=== PATIENT | female | born 1955 | race Caucasian/White ===

== ENCOUNTER → 2016-11-15 | Outpatient (CLI) | payer MEDICAID ==
[2016-11-15 11:14] LABS: CH 32.8; CHCM 34.5; HCT 36.9 % (34.0-46.0); HDW 2.61; HGB 12.4 gm/dL (11.4-16.0); MCHC 33.5 g/dL (31.0-37.0); MCV 95.5 fL (80.0-100.0); RBC 3.86 m/uL (3.80-5.40); RDW 12.3 % (11.5-15.5); WBC 6.7 k/uL (3.8-10.6)
[2016-11-15 11:23] LABS: ALT 47 U/L (9-52); AST 28 U/L (14-36); Alkaline Phosphatase 82 U/L (38-126); Anion Gap 11 mmol/L; Blood Urea Nitrogen 17 mg/dL (7-17); Calcium 9.2 mg/dL (8.4-10.2); Carbon Dioxide 25 mmol/L (22-30); Chloride 110 mmol/L (98-107); Cholesterol 183 mg/dL (<200); Glucose 104 mg/dL (74-99); HDL Cholesterol 42 mg/dL (40-60); Non-African American GFR(MDRD) >60 (>60 ml/min/1.73 sqM); Potassium 4.1 mmol/L (3.5-5.1); Sodium 146 mmol/L (137-145); Total Bilirubin 0.3 mg/dL (0.2-1.3); Total Protein 6.9 g/dL (6.3-8.2); Triglycerides 138 mg/dL (<150)
[2016-11-15 13:24] LABS: Hemoglobin A1C 5.7 % (4.2-6.1)
== END | disposition home or self-care (01) ==
LOC: LABWHC1 10:46
PROVIDERS: ATTEND Family Medicine
DX: M19.90 Unspecified osteoarthritis, unspecified site (principal); R53.83 Other fatigue
CPT/HCPCS: 36415; 80053; 80061; 83036; 84443; 85027

== ENCOUNTER → 2016-11-26 | Outpatient (CLI) | payer MEDICAID ==
--- NOTE | 2016-11-26 09:01 | US ---
EXAMINATION TYPE: US carotid duplex BILAT DATE OF EXAM: 11/26/2016 7:52 AM COMPARISON: NONE CLINICAL HISTORY: Q25.3 Aortic stenosis. pt states that doctor can hear a bruit at the lower rt cca a luis EXAM MEASUREMENTS: RIGHT: Peak Systolic Velocity (PSV) cm/sec ----- Right CCA: 117.3 ----- Right ICA: 43.0 ----- Right ECA: 94.0 ICA/CCA ratio: 0.9 RIGHT: End Diastole cm/sec ----- Right CCA: 43.0 ----- Right ICA: 37.0 ----- Right ECA: 24.1 LEFT: Peak Systolic Velocity (PSV) cm/sec ----- Left CCA: 101.7 ----- Left ICA: 114.0 ----- Left ECA: 71.0 ICA/CCA ratio: 1.1 LEFT: End Diastole cm/sec ----- Left CCA: 38.3 ----- Left ICA: 43.0 ----- Left ECA: 22.6 VERTEBRALS (direction of flow): Right Vertebral: Antegrade Left Vertebral: Antegrade IMPRESSION: bilateral intimal thickening; some distal bilateral ICA vessel tortuosity; no elevated velocity in either ICA, no significant stenosis Criteria for Assigning % of Stenosis / Diameter reduction (Estimation based on the indirect measurements of the internal carotid artery velocities (ICA PSV). 1. Normal (no stenosis)=ICA PSV < 125 cm/s: ratio < 2.0: ICA EDV<40 cm/s. 2. Less than 50% stenosis=ICA PSV < 125 cm/s: ratio < 2.0: ICA EDV<40 cm/s. 3. 50 to 69% stenosis=ICA PSV of 125 to 230 cm/s: ration 2.0 ? 4.0: ICA EDV 40-100 cm/s. 4. Greater than 70% stenosis to near occlusion= ICA PSV > 230 cm/s: ratio > 4.0: ICA EDV > 100 cm/s. 5. Near occlusion= ICA PSV velocities may be low or undetectable: variable ratio and ICA EDV. 6. Total occlusion=unable to detect flow.
== END | disposition home or self-care (01) ==
LOC: RADUSWWP 07:30
PROVIDERS: ATTEND Family Medicine
DX: I77.1 Stricture of artery (principal)
CPT/HCPCS: 93880

== ENCOUNTER → 2016-12-06 | Outpatient (CLI) | payer MEDICAID ==
--- NOTE | 2016-12-06 14:20 | BD ---
EXAMINATION TYPE: MG DEXA axial skeleton. DATE OF EXAM: 12/06/2016 12:56 PM CLINICAL HISTORY: Height: 67.5 inches Weight: 174 pounds FRAX RISK QUESTIONS: Alcohol (3 or more units per day): no Family History (Parent hip fracture): no Glucocorticoids (More than 3mos): no, but uses Flonase occasionally (Ex: prednisone, prednisolone, methylprednisolone, dexamethasone, and hydrocortisone). History of Fracture as adult: no Secondary Osteoporosis: 1. Type 1 Diabetes: no 2. Hyperthyroidism: no 3. Menopause before 45: no 4. Malnutrition: no 5. Chronic liver disease: no Rheumatoid Arthritis: no Current Tobacco Use: patient states no RISK FACTORS HISTORY OF: Family History of Osteoporosis: no Drink Alcohol: very very seldom Active: yes Diet low in dairy products/other sources of calcium:perhaps one serving a day Postmenopausal woman: yes Take estrogen and/or progesterone medications: no Lost more than 2 inches in height since high school: states that height was 69 inches at one time Frequent falls: no Poor Health: no Hyperparathyroidism: no Adrenal Insufficiency: no MEDICATIONS: Prednisone or other steroids: no Thyroid Medications: no Osteoporosis Medications: no Additional Medications: calcium with Vitamin D EXAM MEASUREMENTS: Bone mineral densitometry was performed using the [employer] System. Bone mineral density as measured about the Lumbar spine is: ----- L1-L4(G/cm2): 1.084 T Score Values are as follows: ----- L2: -1.4 ----- L3: -0.7 ----- L4: 0.4 ----- L1-L4: -0.8 Bone mineral density has: Decreased -1.0% since study of: 05/29/2014 Bone mineral density about the R hip (g/cm2): 0.719 Bone mineral density about the L hip (g/cm2): 0.749 T Score values are as follows: -----R Neck: -2.3 -----L Neck: -2.1 -----R Intertrochanter: -1.9 -----L Intertrochanter: -1.1 Bone mineral density has: Decreased -5.9% since study of: 05/29/2014 IMPRESSION: Normal (Values between +1 and -1 indicate normal bone mass) L3 & L4 Osteopenia (T Score between -2.5 and -1 as noted by T score values L2 & Bilateral Hips There is slightly increased risk of fracture and the patient may be considered for treatment. Re-Screen 1-2 years. NOTE: T-SCORE=SD OF THE YOUNG ADULT MEAN.
== END ==
LOC: RADBDWWP 12:21
PROVIDERS: ATTEND Obstetrics & Gynecology
DX: M85.80 Other specified disorders of bone density and structure, unspecified site (principal)
CPT/HCPCS: 77080

== ENCOUNTER → 2016-12-06 | Outpatient (CLI) | payer MEDICAID ==
--- NOTE | 2016-12-08 08:14 | MM ---
Reason for exam: screening (asymptomatic). Last mammogram was performed 1 year ago. History: Patient is postmenopausal. Physical Findings: A clinical breast exam by your physician is recommended on an annual basis and results should be correlated with mammographic findings. MG Screening Mammo w CAD Bilateral CC and MLO view(s) were taken. Prior study comparison: November 26, 2015, bilateral MG screening mammo w CAD. May 29, 2014, bilateral MG screening mammo w CAD. The breast tissue is heterogeneously dense. This may lower the sensitivity of mammography. No significant changes when compared with prior studies. ASSESSMENT: Benign, BI-RAD 2 RECOMMENDATION: Routine screening mammogram of both breasts in 1 year.
== END | disposition home or self-care (01) ==
LOC: RADMAMWWP 12:20
PROVIDERS: ATTEND Family Medicine
DX: Z12.31 Encounter for screening mammogram for malignant neoplasm of breast (principal)

== ENCOUNTER → 2016-12-13 | Outpatient (CLI) | payer MEDICAID | END | disposition home or self-care (01) | LOC: LABWHC1 09:44 | PROVIDERS: ATTEND Family Medicine | DX: M25.40 Effusion, unspecified joint (principal) | CPT/HCPCS: 36415; 85652; 86200; 86431 ==

== ENCOUNTER → 2017-08-17 | Outpatient (CLI) | payer MEDICAID ==
[2017-08-17 15:09] LABS: CH 31.4; CHCM 32.4; HCT 39.2 % (34.0-46.0); HDW 2.17; MCH 32.2 pg (25.0-35.0); MCHC 33.1 g/dL (31.0-37.0); MCV 97.3 fL (80.0-100.0); RBC 4.02 m/uL (3.80-5.40); RDW 13.2 % (11.5-15.5); WBC 8.5 k/uL (3.8-10.6)
[2017-08-17 15:23] LABS: Partial Thromboplastin Time 22.5 sec (22.0-30.0)
[2017-08-17 15:34] LABS: ALT 44 U/L (9-52); AST 25 U/L (14-36); Alkaline Phosphatase 72 U/L (38-126); Anion Gap 8 mmol/L; Blood Urea Nitrogen 14 mg/dL (7-17); Carbon Dioxide 21 mmol/L (22-30); Chloride 110 mmol/L (98-107); Glucose 82 mg/dL (74-99); Non-African American GFR(MDRD) >60 (>60 ml/min/1.73 sqM); Potassium 4.4 mmol/L (3.5-5.1); Sodium 139 mmol/L (137-145); Total Bilirubin 0.3 mg/dL (0.2-1.3); Total Protein 6.8 g/dL (6.3-8.2)
== END | disposition home or self-care (01) ==
LOC: LABPAT 14:24
PROVIDERS: ATTEND Orthopaedic Surgery
DX: Z01.812 Encounter for preprocedural laboratory examination (principal)
CPT/HCPCS: 80053; 85027; 85610; 85730; 87070

== ENCOUNTER → 2018-01-13 | Outpatient (CLI) | payer MEDICAID ==
--- NOTE | 2018-01-16 13:47 | MM ---
Reason for exam: screening (asymptomatic). Last mammogram was performed 1 year and 1 month ago. History: Patient is postmenopausal. Physical Findings: A clinical breast exam by your physician is recommended on an annual basis and results should be correlated with mammographic findings. MG 3D Screening Mammo W/Cad Bilateral CC and MLO view(s) were taken. Prior study comparison: December 06, 2016, bilateral MG screening mammo w CAD. November 26, 2015, bilateral MG screening mammo w CAD. The breast tissue is heterogeneously dense. This may lower the sensitivity of mammography. There are typically benign round, vascular calcifications in both breasts. There is no discrete abnormality. ASSESSMENT: Benign, BI-RAD 2 RECOMMENDATION: Routine screening mammogram of both breasts in 1 year.
== END ==
LOC: RADMAMWWP 09:33
PROVIDERS: ATTEND Family Medicine
DX: Z12.31 Encounter for screening mammogram for malignant neoplasm of breast (principal)
CPT/HCPCS: 77063; 77067

== ENCOUNTER 2018-04-28 08:13 | Day surgery (SDC) | payer MEDICAID ==
[2018-04-27 08:23] VITALS: BMI 26.6
[~2018-04-28 08:13] MED LIST: LACTATED RINGERS 1,000 ML IV SCH; LIDOCAINE 1% 20 ML VIAL (10MG/ML) FOR IV START INTRADERMA PRN; MIDAZOLAM 2 MG/2 ML VIAL IV PRN
[2018-04-28 08:41] VITALS: RESP 16; TEMP 98
[2018-04-28] MEDS ORDERED: KETOROLAC 30 MG/ML 1 ML VIAL IVP ONE (08:48)
[2018-04-28] MEDS ORDERED: PROPOFOL 10 MG/ML 20 ML VIAL IV ONE (09:15)
[2018-04-28] MEDS ORDERED: LIDOCAINE 1% INJ 10MG/ML (20 ML MDV) ONE (09:15)
--- NOTE | 2018-04-28 09:38 | P.PCN ---
Date of Procedure: 04/28/18 Procedure(s) Performed: BRIEF HISTORY: Patient is a 63-year-old pleasant at female, scheduled for an elective colonoscopy as a part of a evaluation of prior history of colon polyps. Last colonoscopy was 4 years ago. PROCEDURE PERFORMED: Colonoscopy with snare polypectomy. PREOPERATIVE DIAGNOSIS: History of colon polyps. IV sedation per Anesthesia. PROCEDURE: After informed consent was obtained, the patient, was brought into the endoscopy unit. IV sedation was administered by Anesthesia under continuous monitoring. Digital rectal examination was normal. Initially the Olympus CF- 160 flexible video colonoscope was then inserted in the rectum, gradually advanced into the cecum without any difficulty. Careful examination was performed as the scope was gradually being withdrawn. Ileocecal valve and the appendiceal orifice were visualized and appeared normal. Prep was excellent. Mucosa of the cecum, ascending colon, appeared normal. In the transverse colon there was a 1 segment of broad-based polyp that was removed by snare polypectomy. Rest of the transverse colon, descending colon, sigmoid colon, and rectum appeared normal. Scattered sigmoidal reticulosis seen. Retroflexion was performed in the rectum and small internal hemorrhoids were seen. The patient tolerated the procedure well. IMPRESSION: 1 cm broad-based transverse colon polyp status post polypectomy Scattered sigmoid diverticulosis Small internal hemorrhoids. RECOMMENDATIONS: Findings of this examination were discussed with the patient as well as a family. She was advised to follow with the biopsy results. If the biopsy shows a tubular adenoma, she can have a repeat colonoscopy in 3-5 years.
[2018-04-28 10:08] VITALS: BP 143/86; PULSE 64
== END 2018-04-28 10:11 | disposition home or self-care (01) ==
LOC: ORWHC2ENDO 08:13
PROVIDERS: ATTEND Internal Medicine Gastroenterology
DX: Z12.11 Encounter for screening for malignant neoplasm of colon (principal); D12.3 Benign neoplasm of transverse colon; K57.30 Diverticulosis of large intestine without perforation or abscess without bleeding; Z86.010 Personal history of colon polyps; K21.9 Gastro-esophageal reflux disease without esophagitis; I10 Essential (primary) hypertension; E78.5 Hyperlipidemia, unspecified; F17.210 Nicotine dependence, cigarettes, uncomplicated; Z79.899 Other long term (current) drug therapy; Z79.82 Long term (current) use of aspirin; M54.9 Dorsalgia, unspecified
CPT/HCPCS: 88305; 45385; J2001; J1885; J2704

== ENCOUNTER → 2018-11-20 | Outpatient (CLI) | payer MEDICAID ==
[2018-11-20 08:28] LABS: HCT 43.3 % (34.0-46.0); HGB 14.2 gm/dL (11.4-16.0); MCH 30.7 pg (25.0-35.0); MCHC 32.8 g/dL (31.0-37.0); MCV 93.7 fL (80.0-100.0); Mean Platelet Volume 9.1; Platelet Count 275 k/uL (150-450); RBC 4.62 m/uL (3.80-5.40); RDW 13.3 % (11.5-15.5); WBC 9.4 k/uL (3.8-10.6)
[2018-11-20 11:41] LABS: LDL Cholesterol,Calculated 125.4 mg/dL (0.0-131.0); VLDL Calculation 27.6 mg/dL (5.00-40.00)
[2018-11-20 11:42] LABS: Albumin 4.5 g/dL (3.80-4.90); Albumin/Globulin Ratio 1.96 (1.60-3.17); Anion Gap 7.4 mmol/L (4.00-12.00); Calcium 9.3 mg/dL (8.7-10.3); Carbon Dioxide 27.6 mmol/L (21.6-31.8); Globulin 2.3 g/dL (1.6-3.3); Potassium 4.1 mmol/L (3.5-5.5); Total Bilirubin 0.4 mg/dL (0.3-1.2); Total Protein 6.8 g/dL (6.2-8.2)
[2018-11-20 11:54] LABS: Vitamin D 25 Hydroxy 29.1 ng/mL (30.0-100.0)
[2018-11-20 12:02] LABS: C-Peptide 1.75 ng/mL (0.81-3.85)
[2018-11-20 13:31] LABS: Hemoglobin A1C 5.6 % (4.0-6.0)
== END ==
LOC: LABWHC1 07:16
PROVIDERS: ATTEND Family Medicine
DX: R53.83 Other fatigue (principal)
CPT/HCPCS: 36415; 80053; 80061; 82306; 83036; 84443; 84681; 85027

== ENCOUNTER → 2019-02-16 | Outpatient (CLI) | payer MEDICAID ==
--- NOTE | 2019-02-20 14:07 | MM ---
Reason for exam: screening (asymptomatic). Last mammogram was performed 1 year and 1 month ago. History: Patient is postmenopausal. Taking estrogen for 2 years beginning at age 63. Taking progesterone for 2 years beginning at age 63. Physical Findings: A clinical breast exam by your physician is recommended on an annual basis and results should be correlated with mammographic findings. MG 3D Screening Mammo W/Cad Bilateral CC and MLO view(s) were taken. Prior study comparison: January 13, 2018, bilateral MG 3d screening mammo w/cad. December 06, 2016, bilateral MG screening mammo w CAD. The breast tissue is heterogeneously dense. This may lower the sensitivity of mammography. Benign appearing bilateral calcifications. No significant changes when compared with prior studies. ASSESSMENT: Benign, BI-RAD 2 RECOMMENDATION: Routine screening mammogram of both breasts in 1 year.
== END ==
LOC: RADMAMWWP 10:40
PROVIDERS: ATTEND Obstetrics & Gynecology
DX: Z12.31 Encounter for screening mammogram for malignant neoplasm of breast (principal)
CPT/HCPCS: 77063; 77067

== ENCOUNTER → 2020-03-25 | Outpatient (CLI) | payer MEDICAID ==
--- NOTE | 2020-03-27 08:46 | MM ---
Reason for exam: screening (asymptomatic). Last mammogram was performed 1 year and 1 month ago. History: Patient is postmenopausal. Taking estrogen for 2 years beginning at age 63. Taking progesterone for 2 years beginning at age 63. Physical Findings: A clinical breast exam by your physician is recommended on an annual basis and results should be correlated with mammographic findings. MG 3D Screening Mammo W/Cad Bilateral CC and MLO view(s) were taken. Prior study comparison: February 16, 2019, bilateral MG 3d screening mammo w/cad. January 13, 2018, bilateral MG 3d screening mammo w/cad. The breast tissue is heterogeneously dense. This may lower the sensitivity of mammography. Stable asymmetric densities. No significant changes when compared with prior studies. ASSESSMENT: Benign, BI-RAD 2 RECOMMENDATION: Routine screening mammogram of both breasts in 1 year.
== END | disposition home or self-care (01) ==
LOC: RADMAMWWP 11:09
PROVIDERS: ATTEND Obstetrics & Gynecology
DX: Z12.31 Encounter for screening mammogram for malignant neoplasm of breast (principal)
CPT/HCPCS: 77063; 77067

== ENCOUNTER → 2020-07-30 | Outpatient (CLI) | payer MEDICAID ==
--- NOTE | 2020-07-31 13:47 | BD ---
EXAMINATION TYPE: Axial Bone Density DATE OF EXAM: 07/30/2020 COMPARISON: Prior DEXA bone scan December 06, 2016 CLINICAL HISTORY: Postmenopausal female. Disorder of bone. Height: 68 Weight: 180.2 FRAX RISK QUESTIONS: Alcohol (3 or more units per day): no Family History (Parent hip fracture): no Glucocorticoids (More than 3mos): no (Ex: prednisone, prednisolone, methylprednisolone, dexamethasone, and hydrocortisone). History of Fracture in Adulthood: no Secondary Osteoporosis: 1. Type 1 Diabetes: no 2. Hyperthyroidism: no 3. Menopause before 45: no 4. Malnutrition: no 5. Chronic liver disease: no Rheumatoid Arthritis: no Current Tobacco Use: no RISK FACTORS HISTORY OF: Family History of Osteoporosis: no Active: yes Diet low in dairy products/other sources of calcium: yes Postmenopausal woman: 14 years ago Take estrogen and/or progesterone medications: Prempro How lon years Lost more than 2 inches in height since high school: no MEDICATIONS: amlodipine, gabapentin, montelukast, benadryl Thyroid Medications: synthroid How Lon months Additional History: EXAM MEASUREMENTS: Bone mineral densitometry was performed using the [employer] System. Bone mineral density as measured about the Lumbar spine is: ----- L1-L4(G/cm2): 1.167 T Score Values are as follows: ----- L2: -0.7 ----- L3: 0.1 ----- L4: 1.2 ----- L1-L4: -0.1 Bone mineral density has: increased 8.1 % since study of: 12.06.2016 Bone mineral density about the R hip (g/cm2): 0.737 Bone mineral density about the L hip (g/cm2): 0.751 T Score values are as follows: -----R Neck: -2.2 -----L Neck: -2.1 -----R Total: -1.8 -----L Total: -1.4 Bone mineral density has: increased 0.6 % since study of: 12.06.2016 IMPRESSION: Osteopenia (T Score between -2.5 and -1) remains present. There remains slightly increased risk of fracture and the patient may be considered for treatment. Re-Screen 2-5 years. NOTE: T-SCORE=SD OF THE YOUNG ADULT MEAN.
== END | disposition home or self-care (01) ==
LOC: RADBDWWP 15:42
PROVIDERS: ATTEND Obstetrics & Gynecology
DX: M85.80 Other specified disorders of bone density and structure, unspecified site (principal)
CPT/HCPCS: 77080

== ENCOUNTER → 2022-09-15 | Outpatient (CLI) | payer MEDICAID ==
--- NOTE | 2022-09-16 08:47 | MM ---
Reason for Exam: Screening (asymptomatic). Last mammogram was performed 2 year(s) and 6 month(s) ago. Patient History: Menarche at age 11. First Full-Term at age 16. Postmenopausal. Estrogen for 2 years from age 63 until age 66. Progesterone for 2 years from age 63 until age 66. Risk Values: Deysi 5 year model risk: 1.2%. NCI Lifetime model risk: 4.0%. Prior Study Comparison: 01/13/2018 Bilateral Screening Mammogram, [facility]. 02/16/2019 Bilateral Screening Mammogram, [facility]. 03/25/2020 Bilateral Screening Mammogram, [facility]. Tissue Density: The breast tissue is heterogeneously dense. This may lower the sensitivity of mammography. Findings: Analyzed By CAD. There is no suspicious group of microcalcifications or new suspicious mass in either breast. Overall Assessment: Negative, BI-RAD 1 Management: Screening Mammogram of both breasts in 1 year. A clinical breast exam by your physician is recommended on an annual basis and results should be correlated with mammographic findings. [facility] will attempt to contact patient to return for supplemental views and ultrasound if indicated. Electronically signed and approved by: Jose Sun DO
== END | disposition home or self-care (01) ==
LOC: RADMAMWWP 14:26
PROVIDERS: ATTEND Obstetrics & Gynecology
DX: Z12.31 Encounter for screening mammogram for malignant neoplasm of breast (principal); Z78.0 Asymptomatic menopausal state
CPT/HCPCS: 77063; 77067

== ENCOUNTER 2023-01-19 07:32 | Day surgery (SDC) | payer MEDICARE, OTHER ==
[~2023-01-19 07:32] MED LIST changes: +LIDOCAINE 1% (10MG/ML) FOR IV START INTRADERMA PRN; -LIDOCAINE 1% 20 ML VIAL (10MG/ML) FOR IV START INTRADERMA PRN; -MIDAZOLAM 2 MG/2 ML VIAL IV PRN
[2023-01-19 07:48] VITALS: RESP 16; TEMP 97.4
[2023-01-19] MEDS ORDERED: LIDOCAINE 2% INJ 20 MG/ML (2 ML VIAL) ONE (08:25)
[2023-01-19] MEDS ORDERED: PROPOFOL 10 MG/ML 20 ML VIAL IV ONE (08:25)
--- NOTE | 2023-01-19 08:54 | P.PCN ---
Date of Procedure: 01/19/23 Procedure(s) Performed: Brief history: Patient is a pleasant 67-year-old white female scheduled for an elective upper endoscopy as well as colonoscopy as a part of evaluation of GERD and prior history of colon polyps Procedure performed: Esophagogastroduodenoscopy with biopsy Colonoscopy Preoperative diagnosis: GERD History of colon polyps Anesthesia: MAC Procedure: After informed consent was obtained from the patient was brought into the endoscopy unit and IV sedation was administered by anesthesia under continuous monitoring. Initially upper endoscopy was done. The Olympus GF 160 video endoscope was inserted inserted into the mouth and esophagus intubated without any difficulty and was gradually advanced into the stomach and duodenum and carefully examined. The bulb and second part of the duodenum appeared normal. The scope was then withdrawn into the stomach adequately insufflated with air and upon careful examination the antrum had mild gastritis and biopsies were done from this area. Mucosa of the body, cardia and fundus appeared normal. The scope was then withdrawn into the esophagus. The GE junction was located at 40 cm to the incisors. It appeared regular with no erythema erosions or ulcerations. Rest of the esophagus appeared normal. Patient tolerated the procedure well. At this time the patient continued to remain sedation. Initial digital rectal examination was normal. Olympus CF 160 video colonoscope was then inserted into the rectum and gradually advanced to the cecum without any difficulty. Careful examination was performed as the scope was gradually being withdrawn. The prep was excellent. The cecum, ascending colon, transverse colon, descending colon, sigmoid colon and rectum appeared normal. Retroflexion was performed in the rectum and no lesions were noted. Patient tolerated the procedure well. Impression: 1. Upper endoscopy revealed mild antral gastritis but no evidence of esophagitis or Brenner's esophagus 2. Colonoscopy revealed scattered similar diverticulosis but no evidence of colorectal neoplasia Recommendations: Findings of this examination were discussed with the patient as well as her family. She was advised to continue with omeprazole 20 mg daily and follow antireflux measures. Recommend repeat colonoscopy in 10 years.
[2023-01-19 09:34] VITALS: BP 126/62; PULSE 68
== END 2023-01-19 09:53 | disposition home or self-care (01) ==
LOC: ORWHC2ENDO 07:32
PROVIDERS: ATTEND Internal Medicine Gastroenterology
DX: Z12.11 Encounter for screening for malignant neoplasm of colon (principal); K29.50 Unspecified chronic gastritis without bleeding; K21.9 Gastro-esophageal reflux disease without esophagitis; K57.30 Diverticulosis of large intestine without perforation or abscess without bleeding; Z86.010 Personal history of colon polyps; I10 Essential (primary) hypertension; E78.5 Hyperlipidemia, unspecified; J44.9 Chronic obstructive pulmonary disease, unspecified; Z87.891 Personal history of nicotine dependence; E03.9 Hypothyroidism, unspecified; Z79.51 Long term (current) use of inhaled steroids; Z79.890 Hormone replacement therapy; Z79.899 Other long term (current) drug therapy
CPT/HCPCS: 88305; 43239; J2704; J2001; G0121

== ENCOUNTER → 2024-07-06 | Outpatient (CLI) | payer MEDICARE ==
--- NOTE | 2024-07-06 13:22 | CA ---
Transthoracic Echo Report Name: Ai Almazan Age: 69 Gender: F : 1955 Exam Date: 07/06/2024 08:39 Exam Location: [facility] Ht (in): 69 Wt (lb): 160 Ordering Physician: Timothy Dubose MD Attending/Referring Phys: Canvas Baster Jumpbasting Mamie Perkins RDCS Procedure CPT: Indications: R079 - Chest pain, unspecified Cardiac Hx: Technical Quality: Good Contrast 1: Total Dose (mL): Contrast 2: Total Dose (mL): MEASUREMENTS (Male / Female) Normal Values 2D ECHO LV Diastolic Diameter PLAX 4.5 cm 4.2 - 5.9 / 3.9 - 5.3 cm LV Systolic Diameter PLAX 3.0 cm IVS Diastolic Thickness 1.2 cm 0.6 - 1.0 / 0.6 - 0.9 cm LVPW Diastolic Thickness 1.1 cm 0.6 - 1.0 / 0.6 - 0.9 cm LV Relative Wall Thickness 0.5 RV Internal Dim ED PLAX 3.2 cm LA Systolic Diameter LX 3.1 cm 3.0 - 4.0 / 2.7 - 3.8 cm LV Diastolic Volume MOD 4C 104.0 cm??? LV Systolic Volume MOD 4C 46.1 cm??? LV Ejection Fraction MOD 4C 55.7 % LV Cardiac Index MOD 4C 1934.7 cm???/min???m??? LV Diastolic Length 4C 7.3 cm LV Systolic Length 4C 5.9 cm LV Diastolic Volume MOD 2C 63.7 cm??? LV Systolic Volume MOD 2C 30.3 cm??? LV Ejection Fraction MOD 2C 52.3 % LV Cardiac Index MOD 2C 1114.6 cm???/min???m??? LV Diastolic Length 2C 7.3 cm LV Systolic Length 2C 5.9 cm LA Volume 61.1 cm??? 18 - 58 / 22 - 52 cm??? LA Volume Index 32.4 cm???/m??? 16 - 28 cm???/m??? M-MODE Aortic Root Diameter MM 2.9 cm AV Cusp Separation MM 1.9 cm DOPPLER AV Peak Velocity 128.4 cm/s AV Peak Gradient 6.6 mmHg MV Area PHT 2.6 cm??? Mitral E Point Velocity 69.6 cm/s Mitral A Point Velocity 97.7 cm/s Mitral E to A Ratio 0.7 MV Deceleration Time 295.7 ms TR Peak Velocity 221.4 cm/s TR Peak Gradient 19.6 mmHg Right Ventricular Systolic Press 23.9 mmHg FINDINGS Left Ventricle Left ventricular ejection fraction is estimated at 55-60 %. Left ventricular cavity size normal.Mildly increased septal wall thickness. Mildly increased posterior wall thickness. Right Ventricle Normal right ventricular size and function. Right ventricular systolic pressure within normal limits. Right Atrium Mild right atrial dilatation. No right atrial thrombus or mass seen. Left Atrium Mildly increased left atrial volume. No left atrial thrombus or mass present. Mitral Valve Structurally normal mitral valve. No evidence for mitral valve prolapse. No mitral stenosis. Mild mitral regurgitation. Aortic Valve Trileaflet aortic valve. No aortic valve stenosis or regurgitation. Tricuspid Valve Structurally normal tricuspid valve. Mild tricuspid regurgitation. Pulmonic Valve Structurally normal pulmonic valve. Mild pulmonic regurgitation. Pericardium No pericardial or pleural effusion. Aorta Normal size aortic root and proximal ascending aorta. CONCLUSIONS LVEF 55 to 60% Mild concentric LVH No obvious regional wall motion abnormality Normal RV size and systolic function No significant valvular dysfunction Previewed by: Dr Danie Hilliard (Electronically Signed) Final Date: 06 July 2024 13:21
== END | disposition home or self-care (01) ==
LOC: RADECHMAIN 08:19
PROVIDERS: ATTEND Family Medicine
DX: R07.9 Chest pain, unspecified
CPT/HCPCS: 93306

== ENCOUNTER → 2025-03-15 | Outpatient (CLI) | payer MEDICARE ==
--- NOTE | 2025-03-15 12:54 | XR ---
EXAMINATION TYPE: XR Hip Complete LT DATE OF EXAM: 03/15/2025 12:39 PM COMPARISON: 03/15/2025 CLINICAL INDICATION: Female, 70 years old with history of M25.552; PHH, pain TECHNIQUE: XR Hip Complete LT; Frontal and lateral views FINDINGS: No evidence for acute process, joint dislocation or significant soft tissue swelling. Osteo phyte formation of the superior acetabulum of the hip. There is mild joint space narrowing. IMPRESSION: 1. No evidence for acute process. 2. Mild hip osteoarthrosis. [facility], , 03/15/2025 12:52 PM
--- NOTE | 2025-03-15 12:56 | XR ---
EXAMINATION TYPE: XR lumbar spine 2 or 3V DATE OF EXAM: 03/15/2025 12:39 PM COMPARISON: None CLINICAL INDICATION: Female, 70 years old with history of M51.361; PHH, pain TECHNIQUE: XR lumbar spine 2 or 3V - Frontal, lateral and coned in L5-S1 lateral views of the spine. FINDINGS: No evidence of any acute osseous pathology. No evidence of loss of vertebral body height i s seen. There is normal alignment of the lumbar vertebral bodies. Scattered disc space narrowing. Mul tilevel marginal osteophyte formation throughout the visualized spine. There is facet joint arthropat hy throughout the spine. Scattered at least mild neural foraminal stenosis at L5-S1 IMPRESSION: 1. No acute fracture. 2. Moderate multilevel disc degeneration. [facility], , 03/15/2025 12:53 PM
== END | disposition home or self-care (01) ==
LOC: RADXRMAIN 12:08
PROVIDERS: ATTEND Family Medicine
DX: M51.361 Other intervertebral disc degeneration, lumbar region with lower extremity pain only (principal); M16.12 Unilateral primary osteoarthritis, left hip
CPT/HCPCS: 72100; 73502

== ENCOUNTER → 2025-03-18 | Outpatient (CLI) | payer MEDICARE ==
--- NOTE | 2025-03-18 18:08 | CT ---
EXAMINATION TYPE: CT hip LT wo con DATE OF EXAM: 03/18/2025 5:03 PM COMPARISON: Same day (radiograph. CLINICAL INDICATION: Female, 70 years old with history of M25.552 PAIN IN LEFT HIP; PHH, Stat H/C: Pa in/burning in left hip, numbness/tingling shooting down leg TECHNIQUE: Axial images were obtained of the CT hip LT wo con, Additional coronal and sagittal reform atted images and soft tissue and bone window were obtained for review. 3-D reconstruction was created on a separate workstation. CT DLP: 553.4 mGycm, Automated exposure control for dose reduction was used. FINDINGS: No acute fracture or dislocation of the left facet. Osseous structures are demineralized. V isualized pelvic bones appear intact. Mild to moderate left degenerative osteophytic changes. No evid ence of a soft tissue mass. Partially visualized abdomen and pelvis demonstrates colonic diverticulos is. IMPRESSION: 1. No acute fracture dislocation involving the left hip. 2. Mild to moderate left hip degenerative osteoarthritis. [facility], , 03/18/2025 6:06 PM
== END | disposition home or self-care (01) ==
LOC: RADCTMAIN 16:00
PROVIDERS: ATTEND Family Medicine
DX: M16.12 Unilateral primary osteoarthritis, left hip (principal)

== ENCOUNTER 2025-04-02 16:28 | Observation (INO) | payer MEDICARE ==
--- NOTE | 2025-04-02 17:10 | ED ---
Back Pain HPI - General Source: patient, RN notes reviewed Mode of arrival: wheelchair Limitations: no limitations <Macho Bernard - Last Filed: 04/02/25 17:28> - General Source: patient, RN notes reviewed <Hellen Douglas - Last Filed: 04/02/25 21:35> - General Chief Complaint: Back Pain/Injury Stated Complaint: Back pain, weakness Time Seen by Provider: 04/02/25 16:43 - History of Present Illness Initial Comments: Quick note: This is a 70-year-old female with history including COPD and joint replacement presenting for lower back pain (01/10) x 3 weeks. Patient states she is having numbness in her left leg extending to her mid calf, making it difficult to stand/walk for extended periods of time. Patient states she is fallen twice since the start of symptoms and several near falls. Patient states she was seen by Dr. Dubose who would like her admitted to have an epidural performed, stating he would like to be notified of patient's arrival for admission. Patient endorses use of Flexeril, Philo and morphine ER with some pa in relief. Endorses receiving both a lumbar x-ray and hip CT last month around mid March while the symptoms were occurring. Denies saddle paresthesia, urinary incontinence/retention, upper extremity paresthesia/weakness. (Macho Bernard) 70-year-old female sent by PCP for low back pain x 3 weeks. States that she has been experiencing pain in the lower back that radiates down her left leg with associated left leg numbness extending to her mid calf. States she is having difficulty ambulating due to symptoms. States symptoms began the day after she was gardening, however denies any specific trauma or injury. She was seen by Dr. Nixon who sent her to the ER for admission to have an epidural performed. She did receive a lumbar x-ray and hip CT last month around symptom onset. Denies saddle anesthesia, loss of bowel or bladder control, or weakness of the lower extremities. She has been taking morphine, Flexeril, and Philo with little relief. (Hellen Douglas) - Related Data Home Medications Medication Instructions Recorded Confirmed Pregabalin [Lyrica] 150 mg PO BID 08/05/14 01/19/23 Montelukast [Singulair] 10 mg PO HS 08/29/17 01/19/23 Ascorbic Acid [Vitamin C] 1,000 mg PO DAILY 01/14/23 01/19/23 Calcium Carbonate/Vitamin D3 1 each PO BID 01/14/23 01/19/23 [Calcium 600 mg-D3 10 Mcg (400 Iu)] Fexofenadine HCl [Andreea Allergy] 180 mg PO DAILY 01/14/23 01/19/23 Krill/Om-3/Dha/Epa/Phospho/Ast 1 each PO DAILY 01/14/23 01/19/23 [Krill Oil 500 mg Softgel] Levothyroxine Sodium [Synthroid] 88 mcg PO DAILY 01/14/23 01/19/23 Omeprazole [PriLOSEC] 40 mg PO HS 01/14/23 01/19/23 Oxybutynin ER [Ditropan Xl] 10 mg PO HS 01/14/23 01/19/23 Rosuvastatin Calcium 5 mg PO HS 01/14/23 01/19/23 Turmeric Root Extract [Turmeric] 500 mg PO DAILY 01/14/23 01/19/23 Umeclidinium Brm/Vilanterol Tr 1 puff INHALATION DAILY 01/14/23 01/19/23 [Anoro Ellipta 62.5-25 Mcg INH] Vitamin B Complex 1 each PO DAILY 01/14/23 01/19/23 amLODIPine [Norvasc] 5 mg PO BID 01/14/23 01/19/23 Allergies Allergy/AdvReac Type Severity Reaction Status Date / Time No Known Allergies Allergy Verified 04/02/25 16:36 Review of Systems ROS Other: All systems not noted in ROS Statement are negative. <Macho Bernard - Last Filed: 04/02/25 17:28> ROS Other: All systems not noted in ROS Statement are negative. <Hellen Douglas - Last Filed: 04/02/25 21:35> ROS Statement: Those systems with pertinent positive or pertinent negative responses have been documented in the HPI. Past Medical History Past Medical History: COPD, GERD/Reflux, Hyperlipidemia, Hypertension, Thyroid Disorder Additional Past Medical History / Comment(s): Chronic back pain, hx. colon polyps, hemorrhoids,. seasonal allergies History of Any Multi-Drug Resistant Organisms: MRSA Date of last positivie culture/infection: 07/17/15 MDRO Source:: Left Foot Past Surgical History: Joint Replacement, Orthopedic Surgery, Tubal Ligation Additional Past Surgical History / Comment(s): multiple Right knee arthroscopies. Colonoscopies, RT TKA Past Anesthesia/Blood Transfusion Reactions: No Reported Reaction Past Psychological History: No Psychological Hx Reported Smoking Status: Former smoker, Vaper Past Alcohol Use History: Rare Past Drug Use History: None Reported - Past Family History Mother Family Medical History: Cancer, Hyperlipidemia, Hypertension Additional Family Medical History / Comment(s): at 95, colon cancer Father Additional Family Medical History / Comment(s): of emphysema, at 86 <Macho Bernard - Last Filed: 04/02/25 17:28> General Exam Limitations: no limitations <Macho Bernard - Last Filed: 04/02/25 17:28> General appearance: alert, in no apparent distress Head exam: Present: atraumatic, normocephalic, normal inspection Eye exam: Present: normal appearance, PERRL, EOMI. Absent: scleral icterus, conjunctival injection, periorbital swelling GI/Abdominal exam: Present: soft, normal bowel sounds. Absent: distended, tenderness, guarding, rebound, rigid Back exam: Present: normal inspection, full ROM, other (Full strength and range of motion of bilateral hips, no saddle anesthesia, full sensation and DP pulses bilaterally). Absent: tenderness, CVA tenderness (R), CVA tenderness (L) Neurological exam: Present: alert, oriented X3 Psychiatric exam: Present: normal affect, normal mood Skin exam: Present: warm, dry, intact, normal color. Absent: rash <Hellen Douglas - Last Filed: 04/02/25 21:35> - General Exam Comments Initial Comments: Visual Physical Exam Vital signs reviewed General: Well-appearing, nontoxic, no acute distress. Head: Normocephalic, atraumatic Eyes: PERRLA, EOMI ENT: Airway patent Chest: Nonlabored breathing Skin: No visual rash, normal skin tone Neuro: Alert and oriented 3 Musculoskeletal: No gross abnormalities (Macho Bernard) Course Vital Signs 04/02/25 16:33 Temperature 98.2 F Pulse Rate 89 Respiratory 18 Rate Blood Pressure 138/75 O2 Sat by Pulse 96 Oximetry Medical Decision Making <Macho Bernard - Last Filed: 04/02/25 17:28> <Hellen Douglas - Last Filed: 04/02/25 21:35> - Medical Decision Making I completed the quick note portion of this chart signed ERIBERTO Bond (Macho Bernard) Was pt. sent in by a medical professional or institution ([facility], [employer], urgent care, hospital, or alf...) When possible be specific @ -Sent by Dr. Dubose for admission to have epidural performed Did you speak to anyone other than the patient for history (EMS, parent, family, police, friend...)? What history was obtained from this source @ -No Did you review nursing and triage notes (agree or disagree)? Why? @ -I reviewed and agree with nursing and triage notes Were old charts reviewed (outside hosp., previous admission, EMS record, old EKG, old radiological studies, urgent care reports/EKG's, alf records)? Report findings @ -No old charts were reviewed Differential Diagnosis (chest pain, altered mental status, abdominal pain women, abdominal pain men, vaginal bleeding, weakness, fever, dyspnea, syncope, headache, dizziness, GI bleed, back pain, seizure, CVA, palpatations, mental health, musculoskeletal)? @ -Differential Back Pain: Strain, zoster, cauda equina syndrome, epidural abscess, vertebral osteomyelitis, discitis, fracture, subluxation, disc herniation, DJD, spinal stenosis, dissection, AAA, pancreatitis, peptic ulcer disease, pyelonephritis, kidney stone, this is not meant to be an all-inclusive list. EKG interpreted by me (3pts min.). @ -None X-rays interpreted by me (1pt min.). @ -None done CT interpreted by me (1pt min.). @ -None done U/S interpreted by me (1pt. min.). @ -None done What testing was considered but not performed or refused? (CT, X-rays, U/S, labs)? Why? @ -Imaging in ER deferred given patient had recent lumbar x-ray and CT hip What meds were considered but not given or refused? Why? @ -None Did you discuss the management of the patient with other professionals (professionals i.e. [facility], [employer], lab, RT, psych nurse, social studies teacher, slipper maker, teacher, canine enforcement officer, returned case inspector)? Give summary @ -I spoke with Dr. Dubose who will admit patient and is requesting MRI lumbar spine and anesthesia consultation for planned epidural Was smoking cessation discussed for >3mins.? @ -No Was critical care preformed (if so, how long)? @ -No Were there social determinants of health that impacted care today? How? (Homelessness, low income, unemployed, alcoholism, drug addiction, transportation, low edu. Level, literacy, decrease access to med. care, senior care, rehab)? @ -No Was there de-escalation of care discussed even if they declined (Discuss DNR or withdrawal of care, Hospice)? DNR status @ -No What co-morbidities impacted this encounter? (DM, HTN, Smoking, COPD, CAD, Cancer, CVA, ARF, Chemo, Hep., AIDS, mental health diagnosis, sleep apnea, morbid obesity)? @ -None Was patient admitted / discharged? Hospital course, mention meds given and route, prescriptions, significant lab abnormalities, going to OR and other pertinent info. @ -Admitted. 70-year-old female sent by Dr. Dubose for intractable lower back pain. No red flag symptoms. Neurovascularly intact. Provided with appropriate analgesics and admitted to medicine for epidural. Case was discussed with my ED attending Dr. Robison. Undiagnosed new problem with uncertain prognosis? @ -No Drug Therapy requiring intensive monitoring for toxicity (Heparin, Nitro, Insul in, Cardizem)? @ -No Were any procedures done? @ -No Diagnosis/symptom? @ -Intractable back pain Acute, or Chronic, or Acute on Chronic? @ -Acute Uncomplicated (without systemic symptoms) or Complicated (systemic symptoms)? @ -Uncomplicated Side effects of treatment? @ -No Exacerbation, Progression, or Severe Exacerbation? @ -No Poses a threat to life or bodily function? How? (Chest pain, [place], NH, pneumonia, PE, COPD, DKA, ARF, appy, cholecystitis, CVA, Diverticulitis, Homicidal, Suicidal, threat to staff... and all critical care pts) @ -No (Hellen Douglas) Disposition <Macho Bernard - Last Filed: 04/02/25 17:28> Time of Disposition: 21:35 <Hellen Douglas - Last Filed: 04/02/25 21:35> Clinical Impression: Intractable back pain Disposition: ADMITTED IP TO THIS HOSP Referrals: Timothy Dubose MD [Primary Care Provider] - 1-2 days
[2025-04-02] MEDS ORDERED: ONDANSETRON 4 MG/2 ML VIAL IVP PRN (21:27)
[2025-04-02] MEDS ORDERED: NALOXONE 0.4 MG/ML 1 ML VIAL IV PRN (21:27)
[2025-04-02] MEDS ORDERED: ACETAMINOPHEN TAB 325 MG TAB PO PRN (21:27)
[2025-04-02 22:19] LABS: Bilirubin,Urine Negative (Negative); Blood,Urine Negative (Negative); Color,Urine Colorless; Glucose,Urine (UA) Negative (Negative); Ketones,Urine Negative (Negative); Leukocyte Esterase,Urine Negative (Negative); Nitrite,Urine Negative (Negative); PH, Urine 6.5 (5.0-8.0); Protein,Urine Negative (Negative); Specific Gravity,Urine 1.004 (1.001-1.035); Urobilinogen,Urine <2.0 mg/dL (<2.0)
[2025-04-02] MEDS: HYDROcodone/APAP 5-325MG 1 EACH TAB PO PRN (22:21)
[2025-04-02 22:31] LABS: Basophils # (A) 0.05 10*3/uL (0.00-0.10); Basophils % (A) 0.6 %; Eosinophils # (A) 0.38 10*3/uL (0.04-0.35); Eosinophils % (A) 4.7 %; HCT 41.7 % (37.2-46.3); HGB 14.7 g/dL (12.0-15.0); Lymphocytes # (A) 3.14 10*3/uL (0.90-5.00); Lymphocytes % (A) 38.7 %; MCH 33.3 pg (27.0-32.0); MCHC 35.3 g/dL (32.0-37.0); MCV 94.3 fL (80.0-97.0); Monocytes # (A) 0.81 10*3/uL (0.20-1.00); Monocytes % (A) 10.0 %; Neutrophils # (A) 3.70 10*3/uL (1.80-7.70); Neutrophils % (A) 45.5 %; Platelet Count 227 10*3/uL (140-440); RBC 4.42 10*6/uL (4.10-5.20); RDW 12.3 % (11.5-14.5); WBC 8.12 10*3/uL (4.50-10.00)
[2025-04-02 22:45] LABS: ALT 106 U/L (4-34); AST 108 U/L (14-36); African American GFR (CKD) >90 (>60 ml/min/1.73 sqM); Albumin 4.4 g/dL (3.5-5.0); Alkaline Phosphatase 107 U/L (38-126); Anion Gap 8 mmol/L; Blood Urea Nitrogen 14 mg/dL (7-17); Calcium 9.6 mg/dL (8.4-10.2); Carbon Dioxide 37 mmol/L (22-30); Chloride 93 mmol/L (98-107); Glucose 93 mg/dL (74-99); Non-African American GFR(CKD) >90 (>60 ml/min/1.73 sqM); Potassium 3.0 mmol/L (3.5-5.1); Sodium 138 mmol/L (137-145); Total Protein 7.2 g/dL (6.3-8.2)
[2025-04-03] MEDS: MORPHINE SULFATE 4 MG/ML SYRINGE IV PRN (05:32)
[2025-04-03] MEDS: IPRATROPIUM-ALBUTEROL 3 ML NEB INHALATION SCH (13:26)
--- NOTE | 2025-04-03 15:26 | CT ---
EXAMINATION TYPE: CT lumbar spine wo con DATE OF EXAM: 04/03/2025 3:08 PM COMPARISON: None CLINICAL INDICATION: Female, 70 years old with history of severe LBP s/p multiple falls; PHH, Severe lower back pain, multiple falls TECHNIQUE: Unenhanced CT of the lumbar spine was performed. Bone and soft tissue window settings are submitted as well as coronal and sagittal reconstructions. CT DLP: 863.[address] CTDI: mGy Automated exposure control for dose reduction was used. FINDINGS: The lumbar vertebral segments are normal in height and there is no fracture. There is a grade 1 anterolisthesis of L4 on L5. There is moderate facet arthropathy at the L4-5 and L5-S1 levels. There is mild degenerative disease throughout the lumbar region where there is mild disc space narrow ing and spondylosis. This vacuum phenomenon at the L5-S1 level. There is a large far left lateral broad-based disc protrusion/herniation of the L4-5 disc, severely compromising the left L4-5 neural foramina. Secondary to circumferential disc bulge and marked thick ening of ligamentum flavum, there is severe spinal stenosis at the L4-5 level. IMPRESSION: 1. Mild multilevel degenerative disease as described above. 2. Large left lateral disc herniation at the L4-5 level severely compromising the left L4-5 neural fo ramina. 3. Grade 1 anterolisthesis of L4 on L5. 4. Severe spinal stenosis at the L4-5 level. 5. Moderate facet arthropathy at the L4-5 and L5-S1 level. [facility], , 04/03/2025 3:24 PM
--- NOTE | 2025-04-03 15:33 | CT ---
EXAMINATION TYPE: CT chest wo con DATE OF EXAM: 04/03/2025 COMPARISON: None CLINICAL INDICATION: Female, 70 years old with history of high co2/copd; PHH, High co2/copd TECHNIQUE: CT scan of the thorax is performed without IV contrast. CT DLP: 491.[address] CTDI: mGy Automated exposure control for dose reduction was used. FINDINGS: There are no significant emphysematous changes. There are a few micronodules in the right lung and there is a 5 mm right lower lobe infrahilar nodule . In the right lateral lower lobe there is a focal area of pleural thickening with interstitial densi ties extending towards the hilum. It most likely represents a small focal round atelectasis. There is no airspace consolidation There is no pleural effusion or pneumothorax. Great vessels the chest are normal and is no mediastinal, or axillary adenopathy. Limited scanning through the upper abdomen reveals no gross abnormality. There are no focal osseous lesions. IMPRESSION: 1. No suspicious lung mass or nodule. 2. Small focal round atelectasis in the right lower lobe laterally. 3. No acute cardiopulmonary disease. 4. No significant emphysematous changes. [facility], , 04/03/2025 3:31 PM
--- NOTE | 2025-04-03 15:43 | MR ---
INDICATION: Patient age:Female; 70 years old; Reason for study: intractable low back pain; PHH. COMPARISONS: CT lumbar spine 04/03/2025, lumbar spine radiograph 03/15/2025. TECHNIQUE: Multi planar, multi sequence imaging was performed utilizing: T1-weighted, T2-weighted, a nd turbo inversion recovery imaging of the lumbar spine. The patient was not given contrast. FINDINGS: The lumbar vertebral bodies do have preserved heights. Grade 1 anterolisthesis of L4 on L5 without evidence of pars defects. Multilevel anterior osteophytosis. Type I Modic change involving t he endplates around the L4-L5 disc. Multilevel disc desiccation is present without significant disc h eight loss. Few T1/T2 hyperintense benign vertebral hemangiomas with largest in the L4 and L1 vertebr al bodies. The conus medullaris and the distal spinal cord do appear unremarkable with regards to the ir signal intensity and morphology. T12-L1: No significant disc pathology is identified. The spinal canal and neural foramen are patent L1-L2: No significant disc pathology is identified. The spinal canal and neural foramen are patent. L2-L3: Broad-based disc bulge with ligamentum flavum buckling without significant spinal canal steno sis. No significant neural foraminal stenosis. L3-L4: Broad-based disc bulge with ligamentum flavum buckling resulting in mild spinal canal stenosi s. Bilateral facet arthropathy. Mild bilateral neural foraminal stenosis. L4-L5: Grade 1 anterolisthesis with uncovering of the disc. Broad-based disc bulge and ligamentum fla vum buckling with bilateral facet arthropathy. Left greater than right. Results in severe spinal katherin l stenosis. Mild right and moderate to severe left neural foraminal stenosis. L5-S1: Broad-based disc bulge without significant spinal canal stenosis. Bilateral facet arthropathy. Mild to moderate left and moderate to severe right neural foraminal stenosis. The disc bulge effaces the exiting right S1 nerve root. Other significant findings: None. IMPRESSION: 1. Moderate multilevel disc degeneration with associated osteoarthritic changes as described above. Most pronounced at L4-L5 with disc bulge, ligamentum flavum buckling, and bilateral facet arthropathy contribute to severe spinal canal stenosis. 2. Grade 1 anterolisthesis L4 on L5. [facility], , 04/03/2025 3:41 PM
[2025-04-03] MEDS: CYCLOBENZAPRINE 10 MG TAB PO SCH (16:54)
[2025-04-03] MEDS: HYDROcodone/APAP 10-325MG 1 EACH TAB PO SCH (16:54)
[2025-04-03] MEDS: methylPREDNISolone SOD SUCCI 40 MG/ML 1 ML VIAL IV SCH (16:54)
[2025-04-03] MEDS ORDERED: Potassium Replacement Protocol 1 EACH MISC MISCELLANE PRN (18:29)
[2025-04-03] MEDS: POTASSIUM CHLORIDE ER 20 MEQ TAB.ER PO STA (19:21)
[2025-04-03] MEDS: PREGABALIN 75 MG CAP PO SCH (21:06)
[2025-04-03] MEDS: MAGNESIUM OXIDE 400 MG TAB PO SCH (21:08)
[2025-04-03] MEDS: MONTELUKAST 10 MG TAB PO SCH (21:08)
[2025-04-03] MEDS: POTASSIUM CHLORIDE ER 20 MEQ TAB.ER PO SCH (21:08)
[2025-04-03] MEDS: ATORVASTATIN 10 MG TAB PO SCH (21:08)
--- NOTE | 2025-04-04 02:26 | HP ---
HISTORY AND PHYSICAL HISTORY OF PRESENT ILLNESS: Inability to walk for lumbar epidural. She had a lumbar spine CT today, awaiting for anesthesia . CT shows a large left lateral disc herniation L4-L5 severely compromising the L4-L5 foramina. She had a lumbar spine MRI shows moderate multilevel disc degeneration with pronounced disc bulge at L4-L5, severe spinal canal stenosis. Dr. Mendoza to give his opinion on her and wait for epidural injections, possibly surgery will be needed. REVIEW OF SYSTEMS: A 14-point review of systems otherwise is negative, except for bowel and bladder incontinence. PHYSICAL EXAMINATION: VITAL SIGNS: Respiratory rate 16 to 18, pulse ox 70s to 90s, temp 97.9, blood pressure 150 to 160s over 70s, O2 of 96% on room air. CARDIOVASCULAR: S1, S2. LUNGS: Clear. GI: Soft. ASSESSMENT: Severely acute severe lumbar disc herniation with severe spinal stenosis. Prognosis is guarded. Wait for Dr. Mendoza's opinion. Continue IV steroids, IV pain control, possible epidural shot. Please see further orders on H and P. MMODL / IJN: [id number] /
[2025-04-04] MEDS: LEVOTHYROXINE 50 MCG TAB PO SCH (05:30)
[2025-04-04 08:01] VITALS: RESP 18
[2025-04-04] MEDS: DULoxetine HCL 60 MG CAPSULE.DR PO SCH (10:11)
[2025-04-04] MEDS: METOPROLOL SUCCINATE (ER) 25 MG TAB.ER.24H PO SCH (10:11)
[2025-04-04] MEDS: ASCORBIC ACID 500 MG TAB PO SCH (10:12)
[2025-04-04] MEDS: FOLIC ACID-VIT B COMPLEX-VIT C 1 CAP PO SCH (10:16)
[2025-04-04] MEDS: MULTIVITAMINS, THERA 1 EACH TAB PO SCH (10:16)
--- NOTE | 2025-04-04 10:52 | P.CNOR ---
History of Present Illness - [facility] Consult date: 04/04/25 Requesting physician: Timothy Dubose Consult reason: back pain History of present illness: History of Presenting Illness Patient is a pleasant 70-year-old female who presented to the ER for increased lower back pain over the past month. Our services have been consulted for severe lumbar spinal stenosis. States approximately 3 to 4 weeks ago she was doing gardening and woke up the next day with the exacerbation of her chronic low back pain. She states she was having difficulty getting out of bed and developed new symptoms numbness in her left lower extremity that extended into her mid calf making it difficult for her to ambulate for extended periods of time. Patient states that she previously had radiculopathy with numbness and tingling into the right lower extremity, that is managed on her current home medications. Patient states she has a history of low back pain and has been taking [place], Flexeril, morphine ER, and Lyrica for her symptoms. Patient states she is currently in physical therapy with mild to moderate relief of her symptoms. Patient seen and examined this morning. Patient is sitting upright in bed. She does report that her pain is managed on current regimen. Patient states that Dr. Dubose had sent patient in for an epidural injection. Patient states that she had run out of her medications and believes that since she started getting them while she is here her symptoms are under control. Discussed MRI results of the lumbar spine taken on 04/03/2025 that demonstrates moderate multilevel disc degeneration with associated osteoarthritic changes, most pronounced at L4-L5 with disc bulge, ligamentum flavum buckling, and bilateral facet arthropathy contributing to severe spinal stenosis. There is also a grade 1 anterolisthesis L4 onto L5 with moderate to severe left neural foraminal stenosis. Patient verbalizes understanding. We also discussed the nonsurgical and surgical options. Patient would like to continue with conservative treatments at this time. Review of Systems Pertinent positives and negatives as discussed in HPI, a complete review of systems was performed and all other systems are negative. Physical Examination General: The patient is awake and alert, in no acute distress Skin: Skin is warm and dry with no obvious rashes or lesions. Neck: The neck is supple, there is no tenderness and ROM intact. Cardiovascular: There is a regular rate and rhythm. Respiratory: Respirations are non-labored. Gastrointestinal: Soft, non-distended, non-tender abdomen. Back: There is no tenderness to palpation in the midline, paralumbar, para thoracic or buttocks region. There is no obvious deformity. Musculoskeletal: ROM limited secondary to pain and stiffness from surgical procedure. Right: shoulder abduction 5/5, elbow flexors 5/5, wrist dorsiflexors 5/5. finger abductor 5/5, seam rubbing machine operator 5/5, hip flexor 5/5, knee flexor 5/5, ankle dorsiflexor 5/5, ankle plantarflexion 5/5 and extensor hallucis 5/5. Left: shoulder abduction 5/5, elbow flexors 5/5, wrist dorsiflexors 5/5. finger abductor 5/5, seam rubbing machine operator 5/5, hip flexor 5/5, knee flexor 5/5, ankle dorsiflexor 5/5, ankle plantarflexion 5/5 and extensor hallucis 5/5. Neurological: CN 2-12 intact. There are no obvious motor or sensory deficits. Movement and coordination equal and intact. Sensory exam to light touch intact C5-T1 and intact from L2-S1. Reflexes 2/4 in bilateral upper and lower extremities. Negative Hoffmans, babinski, and clonus signs. Psychiatric: Cooperative, appropriate mood & affect, normal judgment. Assessment Chronic low back pain L3-S1 spondylosis with stenosis Grade 1 anterolisthesis L4-L5 Bilateral lower extremity radiculopathy Plan At this time we do not recommend any emergent/urgent orthopedic surgical intervention. Patient may follow-up with Dr. Mendoza's office for further evaluation as needed. Orthopedics is signing off at this time. Please do not hesitate to contact us for any further questions. 2. Appreciate medical management 3. Pain management -proceed with evaluation from pain management and possible epidural injection, Utilize ice therapy 20min every hour as needed. 6. PT/OT - weightbearing as tolerated with a walker as needed. 7. Appreciate consult. I reviewed and discussed this case with my attending Dr. Mendoza, whom has reviewed this chart and films and is in agreement with assessment and plan of care as outlined above. I have personally seen and examined the patient, performed the documentation and the assessment and plan as written. Number of minutes spent on the visit: 30m. Past Medical History Past Medical History: COPD, GERD/Reflux, Hyperlipidemia, Hypertension, Thyroid Disorder Additional Past Medical History / Comment(s): Chronic back pain, hx. colon polyps, hemorrhoids,. seasonal allergies History of Any Multi-Drug Resistant Organisms: MRSA Year Discovered:: 07/17/15 MDRO Source:: Left Foot Past Surgical History: Joint Replacement, Orthopedic Surgery, Tubal Ligation Additional Past Surgical History / Comment(s): multiple Right knee arthroscopies. Colonoscopies, RT TKA Past Anesthesia/Blood Transfusion Reactions: No Reported Reaction Past Psychological History: No Psychological Hx Reported Smoking Status: Former smoker, Vaper Past Alcohol Use History: Rare Additional Past Alcohol Use History / Comment(s): STARTED SMOKING AT AGE 29, quit 7-8 yrs. ago, 1/2-1ppd Past Drug Use History: None Reported - Past Family History Mother Family Medical History: Cancer, Hyperlipidemia, Hypertension Additional Family Medical History / Comment(s): at 95, colon cancer Father Additional Family Medical History / Comment(s): of emphysema, at 86 Medications and Allergies Home Medications Medication Instructions Recorded Confirmed Type Pregabalin [Lyrica] 150 mg PO BID 08/05/14 04/03/25 History Montelukast [Singulair] 10 mg PO HS 08/29/17 04/03/25 History Ascorbic Acid [Vitamin C] 1,000 mg PO DAILY 01/14/23 04/03/25 History Rosuvastatin Calcium 5 mg PO HS 01/14/23 04/03/25 History Vitamin B Complex 1 cap PO DAILY 01/14/23 04/03/25 History Albuterol Sulfate [Albuterol 2 puff INHALATION RT-Q4H PRN 04/03/25 04/03/25 History Sulfate Hfa] Calcium Carbonate/Vitamin D3 1 tab PO BID 04/03/25 04/03/25 History [Calcium 600 mg-D3 20 mcg (800 unit)] Ciprofloxacin HCl [Cipro] 500 mg PO BID 04/03/25 04/03/25 History Cyclobenzaprine [Flexeril] 10 mg PO TID 04/03/25 04/03/25 History DULoxetine HCL [Cymbalta] 60 mg PO DAILY 04/03/25 04/03/25 History Diclofenac Sodium Gel [Voltaren 1% 1 applic TOPICAL BID 04/03/25 04/03/25 History Gel] HYDROcodone/APAP 10-325MG [[place] 1 tab PO Q4HR 04/03/25 04/03/25 History 10-325] Ibuprofen [Motrin Ib] 600 mg PO BID PRN 04/03/25 04/03/25 History Levothyroxine Sodium [Synthroid] 50 mcg PO DAILY 04/03/25 04/03/25 History Magnesium Oxide [Mag-Ox] 400 mg PO HS 04/03/25 04/03/25 History Metoprolol Succinate (ER) [Toprol 25 mg PO DAILY 04/03/25 04/03/25 History Xl] Morphine Sulfate [Morphine Sulfate 15 mg PO DAILY 04/03/25 04/03/25 History ER] Multivitamins, Thera [Multivitamin 1 tab PO DAILY 04/03/25 04/03/25 History (formulary)] Temazepam [Restoril] 15 mg PO HS 04/03/25 04/03/25 History Tiotropium Br/Olodaterol HCl 2 puff INHALATION RT-DAILY 04/03/25 04/03/25 History [Stiolto Respimat Inhaler (60)] hydroCHLOROthiazide [Hydrodiuril] 50 mg PO DAILY 04/03/25 04/03/25 History Allergies Allergy/AdvReac Type Severity Reaction Status Date / Time No Known Allergies Allergy Verified 04/03/25 10:08 Results - Labs Labs: H & H 04/02/25 Range/Units 21:55 Hgb 14.7 (12.0-15.0) g/dL Hct 41.7 (37.2-46.3) % Result Diagrams: 04/02/25 21:55 04/02/25 21:55
[2025-04-04 11:56] LABS: Basophils # (A) 0.02 X 10*3/uL (0.00-0.10); Basophils % (A) 0.2 %; Eosinophils # (A) 0 X 10*3/uL (0.04-0.35); Eosinophils % (A) 0 %; HCT 44.1 % (37.2-46.3); HGB 15.1 g/dL (12.0-15.0); Immature Grans, Automated 0.40 %; Lymphocytes # (A) 0.85 X 10*3/uL (0.90-5.00); Lymphocytes % (A) 6.4 %; MCH 33.0 pg (27.0-32.0); MCHC 34.2 g/dL (32.0-37.0); MCV 96.5 FL (80.0-97.0); Monocytes # (A) 0.65 X 10*3/uL (0.20-1.00); Monocytes % (A) 4.9 %; NRBC Per 100 WBC 0 X 10*3/uL (0.00-0.01); Neutrophils # (A) 11.65 X 10*3/uL (1.80-7.70); Neutrophils % (A) 88.1 %; Platelet Count 263 X 10*3/uL (140-440); RBC 4.57 X 10*6/uL (4.10-5.20); RDW 12.5 % (11.5-14.5); WBC 13.22 X 10*3/uL (4.50-10.00)
[2025-04-04 11:58] LABS: ALT 92 U/L (8-44); AST 78 U/L (13-35); Albumin 4.5 g/dL (3.8-4.9); Albumin/Globulin Ratio 1.67 Ratio (1.60-3.17); Alkaline Phosphatase 114 U/L (41-126); Anion Gap 14.50 mmol/L (4.00-12.00); BUN/Creat Ratio 16.12 Ratio (12.00-20.00); Blood Urea Nitrogen 12.9 mg/dL (9.0-27.0); Calcium 10.2 mg/dL (8.7-10.3); Carbon Dioxide 29.5 mmol/L (21.6-31.8); Chloride 97 mmol/L (96-109); Globulin 2.7 g/dL (1.6-3.3); Glucose 116 mg/dL (70-110); Potassium 3.9 mmol/L (3.5-5.5); Sodium 141 mmol/L (135-145); Total Protein 7.2 g/dL (6.2-8.2)
[2025-04-04] MEDS ORDERED: IOPAMIDOL M300 15ML VIAL ONE (12:24)
[2025-04-04] MEDS ORDERED: methylPREDNISolone ACETATE 80 MG/ML 1 ML VIAL ONE (12:24)
--- NOTE | 2025-04-04 12:44 | P.PAINCN ---
History of Present Illness - History of Present Illness This is a 70-year-old pleasant lady who has low back pain in the past but was pain-free until about a month ago. Pain started without any fall or trauma. It is located in the low back going down to mostly left lower extremity up to her knee. Insidious pain goes up to 10/10 without medications. She describes her pain as burning in character complains of numbness and tingling in the left lower extremity up to mid leg. Also complains of occasional weakness of lower extremities. Denies any bowel bladder dysfunction. MRI of lumbar spine was done and was reviewed. Past Medical History Past Medical History: COPD, GERD/Reflux, Hyperlipidemia, Hypertension, Thyroid Disorder Additional Past Medical History / Comment(s): Chronic back pain, hx. colon polyps, hemorrhoids,. seasonal allergies History of Any Multi-Drug Resistant Organisms: MRSA Year Discovered:: 07/17/15 MDRO Source:: Left Foot Past Surgical History: Joint Replacement, Orthopedic Surgery, Tubal Ligation Additional Past Surgical History / Comment(s): multiple Right knee arthroscopies. Colonoscopies, RT TKA Past Anesthesia/Blood Transfusion Reactions: No Reported Reaction Past Psychological History: No Psychological Hx Reported Smoking Status: Former smoker, Vaper Past Alcohol Use History: Rare Additional Past Alcohol Use History / Comment(s): STARTED SMOKING AT AGE 29, quit 7-8 yrs. ago, 1/2-1ppd Past Drug Use History: None Reported - Past Family History Mother Family Medical History: Cancer, Hyperlipidemia, Hypertension Additional Family Medical History / Comment(s): at 95, colon cancer Father Additional Family Medical History / Comment(s): of emphysema, at 86 Medications and Allergies Home Medications Medication Instructions Recorded Confirmed Type Pregabalin [Lyrica] 150 mg PO BID 08/05/14 04/03/25 History Montelukast [Singulair] 10 mg PO HS 08/29/17 04/03/25 History Ascorbic Acid [Vitamin C] 1,000 mg PO DAILY 01/14/23 04/03/25 History Rosuvastatin Calcium 5 mg PO HS 01/14/23 04/03/25 History Vitamin B Complex 1 cap PO DAILY 01/14/23 04/03/25 History Albuterol Sulfate [Albuterol 2 puff INHALATION RT-Q4H PRN 04/03/25 04/03/25 History Sulfate Hfa] Calcium Carbonate/Vitamin D3 1 tab PO BID 04/03/25 04/03/25 History [Calcium 600 mg-D3 20 mcg (800 unit)] Ciprofloxacin HCl [Cipro] 500 mg PO BID 04/03/25 04/03/25 History Cyclobenzaprine [Flexeril] 10 mg PO TID 04/03/25 04/03/25 History DULoxetine HCL [Cymbalta] 60 mg PO DAILY 04/03/25 04/03/25 History Diclofenac Sodium Gel [Voltaren 1% 1 applic TOPICAL BID 04/03/25 04/03/25 History Gel] HYDROcodone/APAP 10-325MG [[place] 1 tab PO Q4HR 04/03/25 04/03/25 History 10-325] Ibuprofen [Motrin Ib] 600 mg PO BID PRN 04/03/25 04/03/25 History Levothyroxine Sodium [Synthroid] 50 mcg PO DAILY 04/03/25 04/03/25 History Magnesium Oxide [Mag-Ox] 400 mg PO HS 04/03/25 04/03/25 History Metoprolol Succinate (ER) [Toprol 25 mg PO DAILY 04/03/25 04/03/25 History Xl] Morphine Sulfate [Morphine Sulfate 15 mg PO DAILY 04/03/25 04/03/25 History ER] Multivitamins, Thera [Multivitamin 1 tab PO DAILY 04/03/25 04/03/25 History (formulary)] Temazepam [Restoril] 15 mg PO HS 04/03/25 04/03/25 History Tiotropium Br/Olodaterol HCl 2 puff INHALATION RT-DAILY 04/03/25 04/03/25 History [Stiolto Respimat Inhaler (60)] hydroCHLOROthiazide [Hydrodiuril] 50 mg PO DAILY 04/03/25 04/03/25 History Allergies Allergy/AdvReac Type Severity Reaction Status Date / Time No Known Allergies Allergy Verified 04/03/25 10:08 Physical Exam Vitals: Vital Signs Temp Pulse Pulse Resp BP Pulse Ox 04/04/25 08:45 80 04/04/25 08:37 88 04/04/25 07:58 98.3 F 88 18 112/63 04/04/25 02:00 97.8 F 81 17 134/71 95 04/03/25 20:52 72 18 07/02/25 20:45 71 18 04/03/25 19:30 97.7 F 82 17 152/71 96 04/03/25 14:02 97.7 F 85 16 160/73 96 04/03/25 13:38 72 04/03/25 13:27 72 Intake and Output 04/03/25 04/04/25 04/04/25 22:59 06:59 14:59 Other: # Voids 3 2 Limited physical exam because of patient's pain. Lumbar spine Limited flexion extension rotation of lumbar spine secondary to pain. Tenderness on the palpation in the midline and paraspinal areas mostly on the left side. Significant para spinal muscle spasm on the left side. Motor strength of hips knees ankles flexion extension 5/5 bilaterally. Deep tendon reflexes of knees and ankles 2+ bilaterally. Sensation to touch grossly intact bilaterally in lower extremities. Straight leg raising test negative bilaterally. Results CBC & Chem 7: 04/04/25 08:35 04/04/25 08:35 Labs: Abnormal Lab Results - Last 24 Hours (Table) 04/04/25 04/04/25 Range/Units 08:35 08:35 WBC 13.22 H (4.50-10.00) X 10*3/uL Hgb 15.1 H (12.0-15.0) g/dL MCH 33.0 H (27.0-32.0) pg MPV 12.6 H (9.5-12.2) FL Immature Gran # 0.05 H (0.00-0.04) X 10*3/uL Neutrophils # 11.65 H (1.80-7.70) X 10*3/uL Lymphocytes # 0.85 L (0.90-5.00) X 10*3/uL Eosinophils # 0 L (0.04-0.35) X 10*3/uL Anion Gap 14.50 H (4.00-12.00) mmol/L Glucose 116 H (70-110) mg/dL AST 78 H (13-35) U/L ALT 92 H (8-44) U/L Assessment and Plan Assessment: 1. Lumbar spondylosis. 2. Lumbar spinal stenosis. 3. Lumbar foraminal stenosis. 4. L4 over L5 anterolisthesis. 5. Lumbar radiculopathy. Plan: Will schedule for lumbar epidural steroid interlaminar approach at L4-5 level as for step. Will follow-up the patient in the outpatient pain clinic. Discussed with the patient about diagnosis, treatments and options including epidural steroid injection along with its complication which may include infection, bleeding, nerve damage, paralysis all of which could be permanent. Patient understands all questions were answered. Patient wants to proceed with the procedure. PQRS Measure Charge Sheet - Pain Location Lower Back Pharmacological Interventions: PRN Medication PQRS Narrative: Smoking Status Former smoker Blood Pressure [Left Arm] 112/63 Blood Pressure 168/75 Pain Intensity [Lower Back] 3 Pain Intensity 3 Pain Scale Used Numeric (1 - 10) Scale Used Numeric (1 - 10) Home Medications: Ambulatory Orders Pregabalin [Lyrica] 150 mg PO BID 08/05/14 Montelukast [Singulair] 10 mg PO HS 08/29/17 Ascorbic Acid [Vitamin C] 1,000 mg PO DAILY 01/14/23 Rosuvastatin Calcium 5 mg PO HS 01/14/23 Vitamin B Complex 1 cap PO DAILY 01/14/23 Albuterol Sulfate [Albuterol Sulfate Hfa] 2 puff INHALATION RT-Q4H PRN 04/03/25 Calcium Carbonate/Vitamin D3 [Calcium 600 mg-D3 20 mcg (800 unit)] 1 tab PO BID 04/03/25 Ciprofloxacin HCl [Cipro] 500 mg PO BID 04/03/25 Cyclobenzaprine [Flexeril] 10 mg PO TID 04/03/25 DULoxetine HCL [Cymbalta] 60 mg PO DAILY 04/03/25 Diclofenac Sodium Gel [Voltaren 1% Gel] 1 applic TOPICAL BID 04/03/25 HYDROcodone/APAP 10-325MG [[place] 10-325] 1 tab PO Q4HR 04/03/25 Ibuprofen [Motrin Ib] 600 mg PO BID PRN 04/03/25 Levothyroxine Sodium [Synthroid] 50 mcg PO DAILY 04/03/25 Magnesium Oxide [Mag-Ox] 400 mg PO HS 04/03/25 Metoprolol Succinate (ER) [Toprol Xl] 25 mg PO DAILY 04/03/25 Morphine Sulfate [Morphine Sulfate ER] 15 mg PO DAILY 04/03/25 Multivitamins, Thera [Multivitamin (formulary)] 1 tab PO DAILY 04/03/25 Temazepam [Restoril] 15 mg PO HS 04/03/25 Tiotropium Br/Olodaterol HCl [Stiolto Respimat Inhaler (60)] 2 puff INHALATION RT-DAILY 04/03/25 hydroCHLOROthiazide [Hydrodiuril] 50 mg PO DAILY 04/03/25
--- NOTE | 2025-04-04 12:45 | P.PCN ---
Description of Procedure: PREOPERATIVE DIAGNOSIS: 1- Lumbar Degenerative Disc Diseases 2-Lumbar spondylosis with Facet arthropathy without myelopathy. 3-lumbar spinal stenosis 4-Lumber radiculopathy POSTOPERATIVE DIAGNOSIS: 1-lumbar degenerative disc disease. 2-lumbar spondylosis with facet arthropathy without myelopathy. 3-lumbar spinal stenosis. 4-Lumber radiculopathy PROCEDURE Injection of radio contrast material into L4-5 interspace, interpretation of epidurogram, injection of steroid at L4- 5 epidural space under fluoroscopic guidance. ANESTHESIA: Lidocaine 1% subcutaneously. In OR continuous pulse ox, EKG, blood pressure and verbal communication was maintained with the patient. EBL: Minimal PROCEDURE INDICATION: Before the procedure were discussed with the patient detailed procedure, alternatives, complications including infection, bleeding, nerve damage, paralysis all of which could be permanent. Patient understands and all questions were answered. PROCEDURE DESCRIPTION : After getting consent, patient in OR in prone position. Back was prepped with chlorhexidine and draped in sterile fashion. After injecting 10 mL of 1% lidocaine subcutaneously, a 20-gauge Tuohy needle was introduced at L4 5 interspace with loss of resistance technique using a syringe filled with air. Negative CSF, negative blood, negative paresthesia. Needle position was confirmed with AP and lateral view of the fluoroscope. After repeat negative aspiration 2 mL of Omnipaque 200 water soluble contrast was injected. Contrast was noted in the epidural space. No contrast was noted into intrathecal or intravascular space. After repeat negative aspiration 6 mL solution was injected intermittently which consists of 5 mL of preservative-free normal saline mixed with 1 mL of 80 mg Depo-Medrol. Needle was withdrawn intact. Skin was cleansed and Band-Aids was applied. DISPOSITION / PLANS: The patient tolerated the procedure well. No complication. The patient was placed in a supine position and transferred to the recovery area in a stable condition for observation. There was no evidence of lower extremity motor or sensory deficit after the procedure. Patient was discharged from the recovery room after meeting discharge criteria. Home discharge instructions were given to the patient by the staff. The patient was reexamined prior to discharge. The patient will schedule a follow up in the clinic in 2-4 weeks.
--- NOTE | 2025-04-04 12:53 | FL ---
DAVINA 13sec fluoro time .[id number] [facility], , 04/04/2025 12:51 PM
[2025-04-04 13:58] VITALS: BP 151/92; PULSE 84; TEMP 98.1
== END 2025-04-04 17:18 | disposition home or self-care (01) ==
LOC: EC 16:28 → 4SSUR 04-03 04:18
PROVIDERS: ADMIT Family Medicine; ATTEND Family Medicine
DX: M51.16 Intervertebral disc disorders with radiculopathy, lumbar region (principal); M48.061 Spinal stenosis, lumbar region without neurogenic claudication; M43.17 Spondylolisthesis, lumbosacral region; J44.9 Chronic obstructive pulmonary disease, unspecified; I10 Essential (primary) hypertension; E78.5 Hyperlipidemia, unspecified; E07.9 Disorder of thyroid, unspecified; K21.9 Gastro-esophageal reflux disease without esophagitis; Z87.891 Personal history of nicotine dependence; Z79.890 Hormone replacement therapy; Z79.899 Other long term (current) drug therapy
CPT/HCPCS: 96376 ×2; 96374 ×2; 96375; 99285; 36415; 94640 ×3; 93005; 80053 ×2; 83735; 85025 ×2; 81003; 72131; 71250; 72148; 62323; G0378 ×2; J2270; Q9967; J1010; J2919 ×2